=== PATIENT | female | born 1990 | race African-American/Black ===

== ENCOUNTER 2016-11-03 11:10 | Emergency (ER) | payer BC ==
[~2016-11-03] VITALS: Ht 175.3 cm; Wt 125.0 kg
[~2016-11-03 11:10] MED LIST: AMOX875 PO; FLUT50SP EACH NARE; IPRA0.03
[2016-11-03 11:13] VITALS: BP 136/72; PULSE 80; RESP 18; TEMP 98.4; O2SAT 99
[2016-11-03] MEDS ORDERED: ZITHTAB PO (11:26)
--- NOTE | 2016-11-03 11:26 | PD ---
HPI . sinus headache Chief Complaint: Headache Time Seen by Provider: 11:20 Travel History International Travel<30 days: No Contact w/Intl Traveler<30days: No Traveled to known affect area: No History of Present Illness HPI 26-year-old female with history of recurrent headaches and sinus problems here with complaint of sinus headache. Patient was previously seen in urgent care and hour and half ago and given Fioricet for her chronic headaches. She had some difficulty filling the prescriptions and is here wanting a second opinion. She tells me that she thinks her headache may be related to sinus issues. She was examined thoroughly at the urgent care, and told she has sinus problems and needs to take Sudafed. She tells me that she has tried Sudafed and has not helped. She is wondering if she has a sinus infection. She denies any fever or chills. She admits to head pressure and fullness. PFSH Past Medical History ?: Not LMP: 10/30/16 Social History Alcohol Use: No Tobacco Use: No Substance Use: No Allergies-Medications (Allergen,Severity, Reaction): Coded Allergies: No Known Allergies (Unverified , 02/17/16) Reported Meds & Prescriptions Reported Meds & Active Scripts Active Zithromax Z-Theron (Azithromycin) 250 Mg Dspk 250 Mg PO DIRECTED 500 MG (2 tabs) day 1, then 1 tab days 2-5. Amoxicillin 875 Mg Tab 875 Mg PO BID Ipratropium [place] 0.03 % Spr 2 [place] NA TID PRN Fluticasone Propionate (Nasal) 50 Mcg Spr 1 [place] EACH NARE BID Review of Systems General / Constitutional: No: Fever Eyes: No: Visual changes HENT: Positive: Headaches, Congestion Cardiovascular: No: Chest Pain or Discomfort Respiratory: No: Shortness of Breath Gastrointestinal: No: Abdominal Pain Genitourinary: No: Dysuria Musculoskeletal: No: Pain Skin: No Rash Neurologic: No: Weakness Psychiatric: No: Depression Endocrine: No: Polydipsia Hematologic/Lymphatic: No: Easy Bruising Physical Exam Narrative GENERAL: AAO x 3, no acute distress, Well-nourished, well-developed patient. SKIN: Warm and dry. No visible rashes or bruising. HEAD: Normocephalic and atraumatic. EYES: No scleral icterus. No injection or drainage. EOM intact, PERRLA ENT: No nasal drainage noted. Mucous membranes pink. Airway patent. Posterior pharynx without any edema, exudates or erythema. Bilateral ears with clear effusions. Frontal and maxillary sinus tenderness on palpation NECK: Supple, trachea midline. No JVD. No lymphadenopathy CARDIOVASCULAR: Regular rate and rhythm without murmurs, gallops, or rubs. RESPIRATORY: Breath sounds equal bilaterally. No accessory muscle use. No rhonchi or rales. GASTROINTESTINAL: Visual inspection normal EXTREMITIES: No cyanosis or edema. BACK: Nontender without obvious deformity. No CVA tenderness. PSYCH: AAO x 3, normal affect. Data Data Last Documented VS Vital Signs Date Time Temp Pulse Resp B/P Pulse Ox O2 Delivery O2 Flow Rate FiO2 11/03/16 11:13 98.4 80 18 136/72 99 MDM Medical Decision Making Medical Screen Exam Complete: Yes Emergency Medical Condition: Yes Medical Record Reviewed: Yes Differential Diagnosis Acute sinusitis, allergic rhinitis, less likely migraine Narrative Course 26-year-old female here with complaints of sinus headache and pressure. She does have history of sinus problems and chronic headaches. She was previously seen in urgent care and given Fioricet. She is here wanting a second opinion as to whether or not she has a sinus infection. Examination was done and there is some evidence of possible sinus infection. I've discussed with her and she is in agreement to try a Z-Theron. Patient verbalized understanding of instructions, questions were answered, and thanked me for their care. I advised them if their condition worsens, please return to the nearest emergency room for further care. Diagnosis Primary Impression: Acute sinusitis Qualified Code: J01.90 - Acute sinusitis, recurrence not specified, unspecified location Patient Instructions: General Instructions, Sinusitis (ED) Departure Forms: Tests/Procedures, Work Release Enter return to work date: November 04, 2016 Additional Instructions: Please return to emergency department if your symptoms return or worsen. Follow up with your primary care provider. Take medications as prescribed. Med/Other Pt SpecificInfo: Prescription(s) given Scripts Azithromycin (Zithromax Z-Theron)250 Mg [id number] Mg PO DIRECTED #1 DSPK Ref 0 500 MG (2 tabs) day 1, then 1 tab days 2-5. Prov:Dillon Salmeron MD 11/03/16 Disposition: 01 DISCHARGE HOME Condition: Stable Annmaarie Reynolds November 03, 2016 11:26
== END 2016-11-03 11:50 | disposition home or self-care (01) ==
LOC: NEPK 11:10
DX: J01.90 Acute sinusitis, unspecified (principal)
CPT/HCPCS: 99282